=== PATIENT | male | born 1935 | race African-American/Black ===

== ENCOUNTER 2021-06-25 10:45 | Inpatient (IN) | payer OTHER ==
[~2021-06-25] VITALS: Ht 175.3 cm; Wt 107.0 kg
[~2021-06-25 10:45] MED LIST: COLC1TAB3; FURO20TA3; GLIP5TAB12; HYDR-2595; ISOS20TA5; PRAVASTATIN SODIUM 40 MG TAB
[2021-06-25] MEDS ORDERED: SODIUM CHLORIDE 0.9% 500 ML IVB ONE (11:00)
[2021-06-25 11:35] LABS: Basophils # (auto) 0 10 ^3/uL (0-0.2); Basophils % (auto) 0.6 % (0.0-2.0); Eosinophils # (auto) 0.3 10 ^3/uL (0-0.8); Eosinophils % (auto) 7.4 % (0.0-7.0); Hematocrit 38.6 % (41.0-53.0); Hemoglobin 12.6 g/dL (13.5-17.5); Lymphocytes # (auto) 0.9 10 ^3/uL (0.4-5.4); Mean Corpuscular Hemoglobin 28.6 pg (28.0-32.0); Mean Corpuscular Hgb Conc. 32.8 g/dL (32.0-36.0); Mean Corpuscular Volume 87.4 fL (80.0-100.0); Monocytes # (auto) 0.5 10 ^3/uL (0-1.3); Monocytes % (auto) 10.7 % (0.0-12.0); Neutrophils # (auto) 2.8 10 ^3/uL (1.6-8.6); Neutrophils % (auto) 61.3 % (37.0-80.0); Red Blood Cells 4.42 10^6/uL (4.5-5.90); Red Cell Distribution Width 16.1 % (11.8-14.3); White Blood Cell 4.6 10^3/uL (4.4-10.8)
[2021-06-25 11:42] LABS: INR 1.06 (0.9-1.15); Partial Thromboplastin Time 24.3 sec (23.6-33.0)
[2021-06-25 11:49] LABS: Alanine Aminotransferase 21 U/L (16-61); Albumin 3.2 g/dL (3.4-5.0); Anion Gap 9 (5-15); Blood Alcohol < 3.0 mg/dL (0-5); Calcium 8.8 mg/dL (8.5-10.1); Carbon Dioxide 25 mmol/L (21-32); Chloride 106 mmol/L (98-107); Glucose 124 mg/dL (74-106); Potassium 4.3 mmol/L (3.5-5.1); Sodium 140 mmol/L (136-145)
[2021-06-25] MEDS ORDERED: IOHEXOL 350 MG/ML 100ML IJ ONE (11:56)
[2021-06-25 12:02] LABS: Alkaline Phosphatase 64 U/L (45-117); Aspartate Aminotransferase 20 U/L (15-37); Bilirubin, Total 0.8 mg/dL (0.2-1.0); GFR African American 21 mL/min; GFR Non-African American 18 mL/min; Total Protein 7.1 g/dL (6.4-8.2)
[2021-06-25 12:04] LABS: BUN/Creatinine Ratio 27.4; Blood Urea Nitrogen 96 mg/dL (7-18)
[2021-06-25] MEDS ORDERED: ACETAMINOPHEN 500 MG TAB PO PRN ×2 (13:30)
[2021-06-25] MEDS ORDERED: ALBUTEROL SULF HFA 90MCG INH 200DOSE IN PRN (13:30)
[2021-06-25] MEDS ORDERED: REMDESIVIR PER PHARMACY 0 ML IV SCH (13:30)
[2021-06-25] MEDS ORDERED: NITROGLYCERIN 0.4 MG SL TAB SL PRN (13:30)
[2021-06-25] MEDS ORDERED: MORPHINE SULFATE INJECTION 2 MG/ML SYRG IV PRN ×2 (13:30)
[2021-06-25] MEDS: SODIUM CHLORIDE 0.9% 1,000 ML IV SCH ×2 (13:30→21:04)
[2021-06-25 13:58] LABS: Urine Bacteria NONE SEEN /hpf (None Seen); Urine Blood 1+ /uL (Negative); Urine Mucus FEW (None Seen); Urine Specific Gravity 1.009 (1.001-1.035); Urine WBC 2 /hpf (0 - 3)
[2021-06-25 14:20] LABS: Amphetamine Screen, Urine NEGATIVE (NEGATIVE); Barbiturate Scree,Urine NEGATIVE (NEGATIVE); Benzodiazephine Screen, Urine NEGATIVE (NEGATIVE); Cannabinoid Screen, Urine NEGATIVE (NEGATIVE); Cocaine Screen, Urine NEGATIVE (NEGATIVE); Opiate Scree,Urine NEGATIVE (NEGATIVE); Phencyclidine Screen, Urine NEGATIVE (NEGATIVE)
[2021-06-25 14:52] LABS: CRP High Sensitivity 0.31 mg/dL (< 0.3); Phosphorus 4.3 mg/dL (2.5-4.90)
[2021-06-25] MEDS: ONDANSETRON HCL 4 MG/2 ML VIAL IV PRN (15:59)
[2021-06-25] MEDS ORDERED: BUDESONIDE (INHALATION) 180 MCG IH IN SCH (22:00)
[2021-06-26 00:57] VITALS: BP 130/66
[2021-06-26] MEDS: HYDROcodone-ACET 5/325MG TAB PO PRN (01:19)
[2021-06-26 06:01] LABS: Basophils # (auto) 0 10 ^3/uL (0-0.2); Basophils % (auto) 0.3 % (0.0-2.0); Eosinophils # (auto) 0.2 10 ^3/uL (0-0.8); Hematocrit 36.4 % (41.0-53.0); Hemoglobin 12.3 g/dL (13.5-17.5); Lymphocytes % (auto) 15.5 % (10.0-50.0); Mean Corpuscular Hemoglobin 29.6 pg (28.0-32.0); Mean Corpuscular Hgb Conc. 33.9 g/dL (32.0-36.0); Mean Corpuscular Volume 87.5 fL (80.0-100.0); Monocytes # (auto) 0.8 10 ^3/uL (0-1.3); Monocytes % (auto) 11.9 % (0.0-12.0); Neutrophils # (auto) 4.4 10 ^3/uL (1.6-8.6); Neutrophils % (auto) 69.3 % (37.0-80.0); Nucleated Red Blood Cells % 0.1 %; Red Blood Cells 4.16 10^6/uL (4.5-5.90); Red Cell Distribution Width 15.8 % (11.8-14.3); White Blood Cell 6.3 10^3/uL (4.4-10.8)
[2021-06-26 06:19] LABS: Potassium 4.1 mmol/L (3.5-5.1)
[2021-06-26 06:26] LABS: Albumin 2.9 g/dL (3.4-5.0); Bilirubin, Total 0.6 mg/dL (0.2-1.0); Calcium 8.7 mg/dL (8.5-10.1); Total Protein 6.7 g/dL (6.4-8.2)
[2021-06-26 08:28] LABS: Protein, Urine 20.8 mg/dL (0.0-11.9)
[2021-06-26] MEDS ORDERED: DexAMETHasone SOD PHOS 10MG/1ML VIAL INJ IV SCH (10:00)
[2021-06-26] MEDS: cefTRIAXone 1GM/50ML D5W 50 ML IV SCH (10:04)
[2021-06-26] MEDS: SODIUM CHLORIDE 0.9% 1,000 ML IV SCH ×2 (10:28→19:03)
[2021-06-26] MEDS: ASCORBIC ACID 1,000 MG TAB PO SCH (10:29)
[2021-06-26] MEDS: ENOXAPARIN SOD 40 MG/0.4 ML SYRINGE SC SCH (10:29)
[2021-06-26] MEDS: ZINC SULFATE 220mg CAP or TAB PO SCH (10:29)
[2021-06-26] MEDS: CHOLECALCIFEROL (VITD3) 2,000 UNIT CAP/TAB PO SCH (10:29)
[2021-06-26] MEDS: AZITHROMYCIN 500MG/ 250ML 250 ML IV SCH (11:24)
[2021-06-26] MEDS ORDERED: LIDOCAINE 2%HCL (LOCAL ANESTH.) INJ 20ML MDV ONE (13:20)
[2021-06-26] MEDS ORDERED: GLIP5TAB12 PO (13:34)
[2021-06-26] MEDS ORDERED: FURO20TA3 PO (13:34)
[2021-06-26] MEDS ORDERED: MET50T PO (13:34)
[2021-06-26] MEDS ORDERED: ATOR10TA52 PO (13:34)
[2021-06-26] MEDS ORDERED: ALLO100T PO (13:34)
[2021-06-26] MEDS ORDERED: AMLO-496 PO (13:34)
[2021-06-26] MEDS ORDERED: ISO60SRT PO (13:34)
[2021-06-26 14:07] LABS: INR 1.05 (0.9-1.15)
[2021-06-26 16:00] VITALS: BP 118/66
[2021-06-26 22:00] VITALS: BP 142/72
[2021-06-27] VITALS (9 sets, daily range): BP systolic 103–156; BP diastolic 70–82
[2021-06-27 05:16] LABS: Basophils # (auto) 0 10 ^3/uL (0-0.2); Basophils % (auto) 0.1 % (0.0-2.0); Eosinophils # (auto) 0 10 ^3/uL (0-0.8); Eosinophils % (auto) 0.1 % (0.0-7.0); Hematocrit 38.8 % (41.0-53.0); Hemoglobin 12.8 g/dL (13.5-17.5); Lymphocytes # (auto) 0.5 10 ^3/uL (0.4-5.4); Mean Corpuscular Hemoglobin 28.7 pg (28.0-32.0); Monocytes # (auto) 0.4 10 ^3/uL (0-1.3); Monocytes % (auto) 8.4 % (0.0-12.0); Neutrophils # (auto) 4.1 10 ^3/uL (1.6-8.6); Neutrophils % (auto) 81.4 % (37.0-80.0); Red Blood Cells 4.46 10^6/uL (4.5-5.90); Red Cell Distribution Width 16.2 % (11.8-14.3); White Blood Cell 5.1 10^3/uL (4.4-10.8)
[2021-06-27] MEDS: SODIUM CHLORIDE 0.9% 1,000 ML IV SCH ×2 (05:30→16:58)
[2021-06-27 05:34] LABS: Anion Gap 8 (5-15); Blood Urea Nitrogen 76 mg/dL (7-18); Calcium 8.8 mg/dL (8.5-10.1); Carbon Dioxide 22 mmol/L (21-32); Chloride 110 mmol/L (98-107); GFR African American 32 mL/min; GFR Non-African American 27 mL/min; Glucose 160 mg/dL (74-106); Potassium 4.5 mmol/L (3.5-5.1); Sodium 140 mmol/L (136-145)
[2021-06-27] MEDS: cefTRIAXone 1GM/50ML D5W 50 ML IV SCH (09:02)
[2021-06-27] MEDS: ZINC SULFATE 220mg CAP or TAB PO SCH (09:39)
[2021-06-27] MEDS: ASCORBIC ACID 1,000 MG TAB PO SCH (09:39)
[2021-06-27] MEDS: AZITHROMYCIN 500MG/ 250ML 250 ML IV SCH (09:39)
[2021-06-27] MEDS: ENOXAPARIN SOD 40 MG/0.4 ML SYRINGE SC SCH (09:40)
[2021-06-27] MEDS: CHOLECALCIFEROL (VITD3) 2,000 UNIT CAP/TAB PO SCH (09:40)
[2021-06-27] MEDS ORDERED: LIDOCAINE 2%HCL (LOCAL ANESTH.) INJ 20ML MDV ONE (14:08)
[2021-06-27] MEDS ORDERED: VANCOMYCIN HCL 1000 MG VL ONE (14:15)
[2021-06-27] MEDS ORDERED: VANCOMYCIN 1GM/250ML 250 ML IV ONE ×2 (14:15→14:22)
[2021-06-27] MEDS ORDERED: fentaNYL CITRATE 100 MCG/2 ML VL ONE (14:15)
[2021-06-27] MEDS ORDERED: MIDAZOLAM HCL 2MG/2ML 2ml VIAL (1mg/ml) ONE (14:16)
[2021-06-27] MEDS: ceFAZolin 1GM/50ML 50 ML IV SCH (16:59)
[2021-06-28] MEDS: SODIUM CHLORIDE 0.9% 1,000 ML IV SCH ×3 (04:30→20:54)
[2021-06-28 05:00] VITALS: BP 149/70
[2021-06-28 08:30] VITALS: BP 142/75
[2021-06-28] MEDS: ZINC SULFATE 220mg CAP or TAB PO SCH (08:39)
[2021-06-28] MEDS: ASCORBIC ACID 1,000 MG TAB PO SCH (08:39)
[2021-06-28] MEDS: ceFAZolin 1GM/50ML 50 ML IV SCH ×2 (08:39)
[2021-06-28] MEDS: CHOLECALCIFEROL (VITD3) 2,000 UNIT CAP/TAB PO SCH (08:40)
[2021-06-28] MEDS: ENOXAPARIN SOD 40 MG/0.4 ML SYRINGE SC SCH (08:40)
[2021-06-28] MEDS: AZITHROMYCIN 500MG/ 250ML 250 ML IV SCH (11:14)
[2021-06-28 13:00] VITALS: BP 139/76
[2021-06-28 16:42] VITALS: BP 146/78
[2021-06-28 21:43] VITALS: BP 145/77
[2021-06-29 05:30] VITALS: BP 136/87
[2021-06-29 06:55] LABS: BUN/Creatinine Ratio 34.6; Calcium 8.5 mg/dL (8.5-10.1); Potassium 4.4 mmol/L (3.5-5.1)
[2021-06-29] MEDS: SODIUM CHLORIDE 0.9% 1,000 ML IV SCH ×2 (07:30→17:52)
[2021-06-29 09:17] VITALS: BP 136/82
[2021-06-29] MEDS: AZITHROMYCIN 500MG/ 250ML 250 ML IV SCH (10:50)
[2021-06-29] MEDS: CHOLECALCIFEROL (VITD3) 2,000 UNIT CAP/TAB PO SCH (10:51)
[2021-06-29] MEDS: ZINC SULFATE 220mg CAP or TAB PO SCH (10:51)
[2021-06-29] MEDS: ASCORBIC ACID 1,000 MG TAB PO SCH (10:51)
[2021-06-29] MEDS: ENOXAPARIN SOD 40 MG/0.4 ML SYRINGE SC SCH (10:52)
[2021-06-29 13:30] VITALS: BP 147/82
[2021-06-29] MEDS: cefTRIAXone 1GM/50ML D5W 50 ML IV SCH (16:09)
[2021-06-29 16:19] VITALS: BP 152/80
[2021-06-29] MEDS: HYDROcodone-ACET 5/325MG TAB PO PRN (17:19)
[2021-06-29 22:00] VITALS: BP 141/87
[2021-06-30] MEDS: SODIUM CHLORIDE 0.9% 1,000 ML IV SCH ×2 (03:30→14:13)
[2021-06-30 05:00] VITALS: BP 129/74
[2021-06-30] MEDS: cefTRIAXone 1GM/50ML D5W 50 ML IV SCH (08:58)
[2021-06-30] MEDS: AZITHROMYCIN 500MG/ 250ML 250 ML IV SCH (08:59)
[2021-06-30] MEDS: ZINC SULFATE 220mg CAP or TAB PO SCH (08:59)
[2021-06-30] MEDS: CHOLECALCIFEROL (VITD3) 2,000 UNIT CAP/TAB PO SCH (08:59)
[2021-06-30] MEDS: ASCORBIC ACID 1,000 MG TAB PO SCH (08:59)
[2021-06-30] MEDS: ENOXAPARIN SOD 40 MG/0.4 ML SYRINGE SC SCH (09:00)
[2021-06-30 09:22] VITALS: BP 134/68
[2021-06-30 12:50] VITALS: BP 149/73
[2021-06-30 17:00] VITALS: BP 136/82
[2021-06-30 22:00] VITALS: BP 133/76
[2021-07-01] MEDS: SODIUM CHLORIDE 0.9% 1,000 ML IV SCH ×3 (00:46→22:45)
[2021-07-01 05:00] VITALS: BP 137/85
[2021-07-01] MEDS: cefTRIAXone 1GM/50ML D5W 50 ML IV SCH (08:28)
[2021-07-01 09:00] VITALS: BP 150/86
[2021-07-01] MEDS: ZINC SULFATE 220mg CAP or TAB PO SCH (09:14)
[2021-07-01] MEDS: ASCORBIC ACID 1,000 MG TAB PO SCH (09:14)
[2021-07-01] MEDS: CHOLECALCIFEROL (VITD3) 2,000 UNIT CAP/TAB PO SCH (09:15)
[2021-07-01] MEDS: ENOXAPARIN SOD 40 MG/0.4 ML SYRINGE SC SCH (09:16)
[2021-07-01 13:00] VITALS: BP 138/70
[2021-07-01 17:00] VITALS: BP 143/83
[2021-07-01 22:00] VITALS: BP 132/58
[2021-07-02 05:00] VITALS: BP 122/67
[2021-07-02] MEDS: SODIUM CHLORIDE 0.9% 1,000 ML IV SCH ×2 (05:30→15:38)
[2021-07-02 09:00] VITALS: BP 128/78
[2021-07-02] MEDS: cefTRIAXone 1GM/50ML D5W 50 ML IV SCH (10:11)
[2021-07-02] MEDS: ENOXAPARIN SOD 40 MG/0.4 ML SYRINGE SC SCH (10:12)
[2021-07-02] MEDS: ASCORBIC ACID 1,000 MG TAB PO SCH (10:12)
[2021-07-02] MEDS: CHOLECALCIFEROL (VITD3) 2,000 UNIT CAP/TAB PO SCH (10:12)
[2021-07-02 13:00] VITALS: BP 134/75
[2021-07-02] MEDS: ZINC SULFATE 220mg CAP or TAB PO SCH (16:19)
[2021-07-02 17:00] VITALS: BP 140/86
[2021-07-02 21:38] VITALS: BP 159/73
[2021-07-03] MEDS: SODIUM CHLORIDE 0.9% 1,000 ML IV SCH ×3 (04:11→23:30)
[2021-07-03 04:51] VITALS: BP 146/74
[2021-07-03] MEDS: ASCORBIC ACID 1,000 MG TAB PO SCH (09:27)
[2021-07-03] MEDS: cefTRIAXone 1GM/50ML D5W 50 ML IV SCH (09:27)
[2021-07-03] MEDS: ZINC SULFATE 220mg CAP or TAB PO SCH (09:27)
[2021-07-03 09:30] VITALS: BP 142/76
[2021-07-03] MEDS: ENOXAPARIN SOD 40 MG/0.4 ML SYRINGE SC SCH (09:30)
[2021-07-03] MEDS: CHOLECALCIFEROL (VITD3) 2,000 UNIT CAP/TAB PO SCH (09:30)
[2021-07-03 17:14] VITALS: BP 139/79
[2021-07-03 22:00] VITALS: BP 147/56
[2021-07-04 05:00] VITALS: BP 151/85
[2021-07-04] MEDS: SODIUM CHLORIDE 0.9% 1,000 ML IV SCH ×2 (07:30→17:30)
[2021-07-04 09:00] VITALS: BP 143/78
[2021-07-04] MEDS: ENOXAPARIN SOD 40 MG/0.4 ML SYRINGE SC SCH (10:34)
[2021-07-04] MEDS: ASCORBIC ACID 1,000 MG TAB PO SCH (10:34)
[2021-07-04] MEDS: CHOLECALCIFEROL (VITD3) 2,000 UNIT CAP/TAB PO SCH (10:34)
[2021-07-04] MEDS: ZINC SULFATE 220mg CAP or TAB PO SCH (10:34)
[2021-07-04 12:38] LABS: Potassium 4.7 mmol/L (3.5-5.1)
[2021-07-04 12:45] LABS: BUN/Creatinine Ratio 34.1; Calcium 8.4 mg/dL (8.5-10.1)
[2021-07-04 13:00] VITALS: BP 143/71
[2021-07-04 17:00] VITALS: BP 127/56
[2021-07-04 19:04] LABS: INR 1.02 (0.9-1.15); Partial Thromboplastin Time 30.5 sec (23.6-33.0)
[2021-07-04 19:09] LABS: Basophils # (auto) 0 10 ^3/uL (0-0.2); Basophils % (auto) 0.8 % (0.0-2.0); Eosinophils # (auto) 0.5 10 ^3/uL (0-0.8); Hematocrit 35.6 % (41.0-53.0); Hemoglobin 11.9 g/dL (13.5-17.5); Lymphocytes # (auto) 0.9 10 ^3/uL (0.4-5.4); Lymphocytes % (auto) 14.7 % (10.0-50.0); Mean Corpuscular Hemoglobin 29.1 pg (28.0-32.0); Mean Corpuscular Hgb Conc. 33.3 g/dL (32.0-36.0); Mean Corpuscular Volume 87.1 fL (80.0-100.0); Monocytes # (auto) 0.6 10 ^3/uL (0-1.3); Monocytes % (auto) 10.1 % (0.0-12.0); Neutrophils # (auto) 3.8 10 ^3/uL (1.6-8.6); Neutrophils % (auto) 66.4 % (37.0-80.0); Red Blood Cells 4.09 10^6/uL (4.5-5.90); Red Cell Distribution Width 16.4 % (11.8-14.3); White Blood Cell 5.8 10^3/uL (4.4-10.8)
[2021-07-04 22:00] VITALS: BP 108/49
[2021-07-05] MEDS: SODIUM CHLORIDE 0.9% 1,000 ML IV SCH ×3 (03:49→20:23)
[2021-07-05 05:00] VITALS: BP 124/50
[2021-07-05 09:00] VITALS: BP 147/73
[2021-07-05] MEDS: CHOLECALCIFEROL (VITD3) 2,000 UNIT CAP/TAB PO SCH (10:00)
[2021-07-05] MEDS: ASCORBIC ACID 1,000 MG TAB PO SCH (10:00)
[2021-07-05] MEDS: ZINC SULFATE 220mg CAP or TAB PO SCH (10:00)
[2021-07-05] MEDS: ENOXAPARIN SOD 40 MG/0.4 ML SYRINGE SC SCH (10:00)
[2021-07-05] MEDS ORDERED: fentaNYL CITRATE 100 MCG/2 ML VL ONE (12:21)
[2021-07-05] MEDS ORDERED: MIDAZOLAM HCL 2MG/2ML 2ml VIAL (1mg/ml) ONE (12:21)
[2021-07-05] MEDS ORDERED: VANCOMYCIN HCL 1000 MG VL ONE ×2 (12:21→13:22)
[2021-07-05] MEDS ORDERED: VANCOMYCIN 1GM/250ML 250 ML IV ONE (12:21)
[2021-07-05] MEDS ORDERED: LIDOCAINE 2%HCL (LOCAL ANESTH.) INJ 20ML MDV ONE (12:41)
[2021-07-05] MEDS ORDERED: ceFAZolin 1GM VL ONE (13:08)
[2021-07-05] MEDS ORDERED: cloNIDine HCL 0.1 MG TAB PO ONE (15:00)
[2021-07-05] MEDS ORDERED: cloNIDine HCL 0.1 MG TAB ONE (15:04)
[2021-07-05 17:00] VITALS: BP 151/84
[2021-07-05] MEDS: ceFAZolin 1GM/50ML 50 ML IV SCH (20:59)
[2021-07-05 22:29] VITALS: BP 158/74
[2021-07-06 05:19] VITALS: BP 163/91
[2021-07-06] MEDS: ceFAZolin 1GM/50ML 50 ML IV SCH ×3 (05:50→21:21)
[2021-07-06] MEDS ORDERED: cloNIDine HCL 0.1 MG TAB PO PRN (06:30)
[2021-07-06 09:21] VITALS: BP_SYST 124; BP_SYST 170; BP_DIAS 70; BP_DIAS 83
[2021-07-06] MEDS: CHOLECALCIFEROL (VITD3) 2,000 UNIT CAP/TAB PO SCH (10:00)
[2021-07-06] MEDS: ZINC SULFATE 220mg CAP or TAB PO SCH (10:00)
[2021-07-06] MEDS: ASCORBIC ACID 1,000 MG TAB PO SCH (10:00)
[2021-07-06] MEDS: SODIUM CHLORIDE 0.9% 1,000 ML IV SCH (10:12)
[2021-07-06] MEDS ORDERED: DEXTROSE (50%) 50ML SYRG IV PRN (10:45)
[2021-07-06] MEDS: ACCU-CHEK COMFORT CURVE STRIP VI SCH ×3 (11:31→21:19)
[2021-07-06] MEDS: InsuLIN REG 1unit/0.01ml Soln (100units/ml) SC SCH ×3 (11:32→21:19)
[2021-07-06 13:00] VITALS: BP 166/77
[2021-07-06 17:02] VITALS: BP 152/76
[2021-07-06 17:20] VITALS: BP 142/73
[2021-07-06] MEDS: ATORVASTATIN 20 MG TAB PO SCH (21:20)
[2021-07-06 22:00] VITALS: BP 143/79
[2021-07-07 05:00] VITALS: BP 146/61
[2021-07-07 05:59] LABS: Calcium 8.8 mg/dL (8.5-10.1); Potassium 4.5 mmol/L (3.5-5.1)
[2021-07-07 06:02] LABS: BUN/Creatinine Ratio 31.6
[2021-07-07] MEDS: InsuLIN REG 1unit/0.01ml Soln (100units/ml) SC SCH ×4 (06:11→21:23)
[2021-07-07] MEDS: ACCU-CHEK COMFORT CURVE STRIP VI SCH ×4 (06:11→21:22)
[2021-07-07] MEDS: ceFAZolin 1GM/50ML 50 ML IV SCH ×3 (06:11→21:22)
[2021-07-07 06:13] LABS: Basophils # (auto) 0 10 ^3/uL (0-0.2); Basophils % (auto) 0.7 % (0.0-2.0); Eosinophils # (auto) 0.3 10 ^3/uL (0-0.8); Eosinophils % (auto) 5.9 % (0.0-7.0); Hematocrit 37.4 % (41.0-53.0); Hemoglobin 12.3 g/dL (13.5-17.5); Lymphocytes # (auto) 0.8 10 ^3/uL (0.4-5.4); Lymphocytes % (auto) 14.7 % (10.0-50.0); Mean Corpuscular Hemoglobin 28.4 pg (28.0-32.0); Mean Corpuscular Hgb Conc. 32.8 g/dL (32.0-36.0); Mean Corpuscular Volume 86.7 fL (80.0-100.0); Monocytes # (auto) 0.6 10 ^3/uL (0-1.3); Monocytes % (auto) 10.9 % (0.0-12.0); Neutrophils # (auto) 3.5 10 ^3/uL (1.6-8.6); Neutrophils % (auto) 67.8 % (37.0-80.0); Red Blood Cells 4.32 10^6/uL (4.5-5.90); Red Cell Distribution Width 15.8 % (11.8-14.3); White Blood Cell 5.1 10^3/uL (4.4-10.8)
[2021-07-07 09:00] VITALS: BP 154/101
[2021-07-07] MEDS: ISOSORBIDE MONONITRATE ER 60 MG TAB PO SCH (09:58)
[2021-07-07] MEDS: amLODIPine BESYLATE 5 MG TAB PO SCH (09:59)
[2021-07-07] MEDS: ALLOPURINOL 100 MG TAB PO SCH (09:59)
[2021-07-07] MEDS ORDERED: HALOPERIDOL LACTATE 5 MG/ML INJ VIAL IM PRN (10:00)
[2021-07-07 11:57] VITALS: BP 139/98
[2021-07-07 17:22] VITALS: BP 127/88
[2021-07-07] MEDS: ATORVASTATIN 20 MG TAB PO SCH (21:22)
[2021-07-07 22:00] VITALS: BP 139/83
[2021-07-08 05:00] VITALS: BP 145/77
[2021-07-08] MEDS: ceFAZolin 1GM/50ML 50 ML IV SCH ×3 (06:00→21:37)
[2021-07-08] MEDS: ACCU-CHEK COMFORT CURVE STRIP VI SCH ×4 (06:04→22:00)
[2021-07-08] MEDS: InsuLIN REG 1unit/0.01ml Soln (100units/ml) SC SCH ×4 (06:05→22:00)
[2021-07-08 07:09] LABS: Potassium 4.6 mmol/L (3.5-5.1)
[2021-07-08 07:17] LABS: BUN/Creatinine Ratio 29.6; Calcium 8.7 mg/dL (8.5-10.1)
[2021-07-08 09:00] VITALS: BP 161/72
[2021-07-08] MEDS: ISOSORBIDE MONONITRATE ER 60 MG TAB PO SCH (09:50)
[2021-07-08] MEDS: amLODIPine BESYLATE 5 MG TAB PO SCH (09:50)
[2021-07-08] MEDS: ALLOPURINOL 100 MG TAB PO SCH (09:51)
[2021-07-08 13:00] VITALS: BP 116/79
[2021-07-08] MEDS ORDERED: LACTULOSE 20Gm/30ML SOLN PO PRN (14:30)
[2021-07-08 17:37] VITALS: BP 151/73
[2021-07-08] MEDS: ONDANSETRON HCL 4 MG/2 ML VIAL IV PRN (20:30)
[2021-07-08] MEDS: DOCUSATE SOD 100 MG CAP PO SCH (21:37)
[2021-07-08] MEDS: ATORVASTATIN 20 MG TAB PO SCH (21:38)
[2021-07-08 22:00] VITALS: BP 133/80
[2021-07-09 05:00] VITALS: BP 121/70
[2021-07-09 05:19] LABS: Basophils # (auto) 0 10 ^3/uL (0-0.2); Basophils % (auto) 0.8 % (0.0-2.0); Eosinophils # (auto) 0.3 10 ^3/uL (0-0.8); Hematocrit 35.8 % (41.0-53.0); Hemoglobin 11.8 g/dL (13.5-17.5); Lymphocytes # (auto) 0.8 10 ^3/uL (0.4-5.4); Lymphocytes % (auto) 15.4 % (10.0-50.0); Mean Corpuscular Hemoglobin 28.6 pg (28.0-32.0); Mean Corpuscular Hgb Conc. 32.9 g/dL (32.0-36.0); Mean Corpuscular Volume 86.9 fL (80.0-100.0); Monocytes # (auto) 0.6 10 ^3/uL (0-1.3); Monocytes % (auto) 11.6 % (0.0-12.0); Neutrophils # (auto) 3.6 10 ^3/uL (1.6-8.6); Neutrophils % (auto) 67.2 % (37.0-80.0); Nucleated Red Blood Cells % 0.1 %; Red Blood Cells 4.13 10^6/uL (4.5-5.90); White Blood Cell 5.4 10^3/uL (4.4-10.8)
[2021-07-09 05:36] LABS: INR 1.08 (0.9-1.15); Partial Thromboplastin Time 27.1 sec (23.6-33.0)
[2021-07-09 05:41] LABS: Albumin 2.6 g/dL (3.4-5.0); Calcium 8.6 mg/dL (8.5-10.1); Magnesium 2.4 mg/dL (1.6-2.6); Potassium 4.7 mmol/L (3.5-5.1)
[2021-07-09 05:45] LABS: Bilirubin, Total 0.6 mg/dL (0.2-1.0); Phosphorus 3.2 mg/dL (2.5-4.90); Total Protein 6.2 g/dL (6.4-8.2)
[2021-07-09] MEDS: ACCU-CHEK COMFORT CURVE STRIP VI SCH ×4 (05:57→22:11)
[2021-07-09] MEDS: ceFAZolin 1GM/50ML 50 ML IV SCH ×3 (05:57→22:00)
[2021-07-09] MEDS: InsuLIN REG 1unit/0.01ml Soln (100units/ml) SC SCH ×4 (05:58→22:00)
[2021-07-09 09:00] VITALS: BP 122/80
[2021-07-09] MEDS: DOCUSATE SOD 100 MG CAP PO SCH ×2 (09:36→22:00)
[2021-07-09] MEDS: ALLOPURINOL 100 MG TAB PO SCH (09:37)
[2021-07-09] MEDS: amLODIPine BESYLATE 5 MG TAB PO SCH (09:38)
[2021-07-09] MEDS: ISOSORBIDE MONONITRATE ER 60 MG TAB PO SCH (09:38)
[2021-07-09] MEDS ORDERED: ENOXAPARIN SOD 30 MG/0.3 ML SYRINGE SC SCH ×2 (10:00)
[2021-07-09] MEDS ORDERED: SODIUM CHLORIDE 0.9% 1,000 ML IV ONE (11:15)
[2021-07-09 13:00] VITALS: BP 107/71
[2021-07-09 17:00] VITALS: BP 103/61
[2021-07-09] MEDS: ATORVASTATIN 20 MG TAB PO SCH (22:00)
== END 2021-07-09 21:15 | DRG 242 ==
LOC: EDBD 10:45 → ER 10:45 → TELE 13:29 → TELE-CENTR 06-26 14:36
PROVIDERS: ADMIT Nurse Practitioner Acute Care; ATTEND Internal Medicine
PROC: 0JH606Z Insertion of Pacemaker, Dual Chamber into Chest Subcutaneous Tissue and Fascia, Open Approach (ICD-10-PCS; principal; 2021-06-27)
PROC: 02H63JZ Insertion of Pacemaker Lead into Right Atrium, Percutaneous Approach (ICD-10-PCS; 2021-06-27)
PROC: 02HK3JZ Insertion of Pacemaker Lead into Right Ventricle, Percutaneous Approach (ICD-10-PCS; 2021-06-27)
PROC: 0JWT0PZ Revision of Cardiac Rhythm Related Device in Trunk Subcutaneous Tissue and Fascia, Open Approach (ICD-10-PCS; 2021-07-05)
PROC: 02PA0MZ Removal of Cardiac Lead from Heart, Open Approach (ICD-10-PCS; 2021-07-05)
PROC: 02HK0JZ Insertion of Pacemaker Lead into Right Ventricle, Open Approach (ICD-10-PCS; 2021-07-05)
PROC: 02WA0MZ Revision of Cardiac Lead in Heart, Open Approach (ICD-10-PCS; 2021-07-05)
DX: I49.5 Sick sinus syndrome (principal); J96.21 Acute and chronic respiratory failure with hypoxia; N17.1 Acute kidney failure with acute cortical necrosis; G92.8 Other toxic encephalopathy; T82.120A Displacement of cardiac electrode, initial encounter; I45.89 Other specified conduction disorders; R00.1 Bradycardia, unspecified; E86.9 Volume depletion, unspecified; J44.9 Chronic obstructive pulmonary disease, unspecified; E66.01 Morbid (severe) obesity due to excess calories; E11.22 Type 2 diabetes mellitus with diabetic chronic kidney disease; E78.5 Hyperlipidemia, unspecified; I12.9 Hypertensive chronic kidney disease with stage 1 through stage 4 chronic kidney disease, or unspecified chronic kidney disease; I25.10 Atherosclerotic heart disease of native coronary artery without angina pectoris; M54.50 Low back pain, unspecified; D69.6 Thrombocytopenia, unspecified; M10.9 Gout, unspecified; N18.9 Chronic kidney disease, unspecified; Z20.822 Contact with and (suspected) exposure to COVID-19; Z75.1 Person awaiting admission to adequate facility elsewhere; Z90.49 Acquired absence of other specified parts of digestive tract; Z99.81 Dependence on supplemental oxygen; Z88.6 Allergy status to analgesic agent
CPT/HCPCS: 33208; 33215; 33216; 36415; 70450; 71045; 72070; 72170; 74176; 76775; 80048; 80053; 80307; 80320; 81001; 82570; 82728; 82962; 83036; 83605; 83615; 83735; 84100; 84156; 84300; 84484; 85025; 85379; 85610; 85730; 86141; 87040; 87426; 93005; 93306; 93970; 96360; 97110; 97116; 97530; 99152; 99153; 99291; C1785; G0378; J0690; J0696; J1100; J1815; J2250; J2405